=== PATIENT | female | born 1990 | race American Indian/Alaskan Native ===

== ENCOUNTER 2017-01-03 10:56 | Outpatient (CLI) | payer BC, MEDICAID ==
[2017-01-03 11:23] VITALS: BP 148/88
--- NOTE | 2017-01-03 12:50 | Ultrasound Report ---
BIOPHYSICAL PROFILE: History: well-being, rupture of membranes. Technique: Transabdominal ultrasound with Doppler interrogation. 2 - breathing movements 2 - movements 2 - posture and tone 2 - Qualitative amniotic fluid volume 8 - TOTAL SCORE OF POSSIBLE 8 Heart Rate (bpm) 132
--- NOTE | 2017-01-03 12:51 | Ultrasound Report ---
OB LIMITED History: well-being, rupture of membranes. Technique: Transabdominal ultrasound with Doppler interrogation. Gestation: Single Position: Cephalic Amniotic Fluid: Normal LIZ = 9.9 cm Heart Rate: 128 BPM
== END 2017-01-03 13:10 | disposition home or self-care (01) ==
LOC: TRG 10:56
PROVIDERS: ATTEND Obstetrics & Gynecology
DX: O42.92 Full-term premature rupture of membranes, unspecified as to length of time between rupture and onset of labor (principal); Z3A.37 37 weeks gestation of pregnancy
CPT/HCPCS: 59025; 76815; 76819

== ENCOUNTER 2019-01-22 22:08 | Emergency (ER) | payer BC, MEDICAID ==
[2019-01-22 22:17] VITALS: BP 114/53
--- NOTE | 2019-01-22 22:22 | Emergency Department Report ---
Blank Doc - Documentation Documentation: This is a 28-year-old female that presents with vaginal bleeding and pelvic cramping. Stated is about 2 weeks . This initial assessment/diagnostic orders/clinical plan/treatment(s) is/are subject to change based on patient's health status, clinical progression and re- assessment by fellow clinical providers in the ED. Further treatment and workup at subsequent clinical providers discretion. Patient/guardians urged not to elope from the ED as their condition may be serious if not clinically assessed and managed. Initial orders include: 1- Patient sent to [facility] for further evaluation and treatment 2- labs 3- UA
[2019-01-22 23:03] LABS: Basophils % (Auto) 0.4 % (0.0-1.8); Eosinophils % (Auto) 0.3 % (0.0-4.3); Hematocrit 39.6 % (30.3-42.9); Hemoglobin 12.9 gm/dl (10.1-14.3); Lymphocytes # (Auto) 1.9 K/mm3 (1.2-5.4); Lymphocytes % (Auto) 26.9 % (13.4-35.0); Mean Corpuscular HGB Conc 33 % (30-34); Mean Corpuscular Volume 83 fl (79-97); Monocytes # (Auto) 0.6 K/mm3 (0.0-0.8); Monocytes % (Auto) 8.8 % (0.0-7.3); Platelet Count 315 K/mm3 (140-440); Red Blood Count 4.78 M/mm3 (3.65-5.03); Red Cell Distribution Width 16.2 % (13.2-15.2)
[2019-01-22 23:20] LABS: Bacteria,Urine 1+ /HPF (Negative); Bilirubin,Urine NEG (Negative); Blood,Urine LG (Negative); Color,Urine Yellow (Yellow); Mucus,Urine FEW /HPF; Protein,Urine <15 mg/dL mg/dL (Negative); Urobilinogen,Urine < 2.0 mg/dL (<2.0)
[2019-01-22 23:22] LABS: RBC,Urine > 182.0 /HPF (0.0-6.0)
--- NOTE | 2019-01-23 03:40 | Ultrasound Report ---
PROCEDURE: US OB <= 14 WEEKS FETUS TECHNIQUE: Real-time transabdominal sonography of the uterus, placenta, amniotic fluid, adnexa, and fetus was performed with image documentation. Measurements were obtained to determine age/size. M-mode Doppler was used to document heartbeat. ADDITIONAL GESTATION: None. HISTORY: vag bleed while preg COMPARISONS: None . FINDINGS: No intrauterine or ectopic is identified. Uterus measures 7.6 x 3.9 x 5.4 cm. Endometrium is thickened at 14.2 mm. The right ovary measures 3.9 x 1.8 x 2.9 cm. The left ovary measures 2.3 x 2 x 2.5 cm. There is no ma ss or torsion. There is no free pelvic fluid. IMPRESSION: There is no evidence of intrauterine or ectopic . There is endometrial hyperplasia. This document is electronically signed by Phani Hearn MD., January 23 2019 03:38:24 AM ET
--- NOTE | 2019-01-23 03:42 | Ultrasound Report ---
PROCEDURE: US OB TRANSVAGINAL TECHNIQUE: Real-time transvaginal sonography of the uterus, placenta, amniotic fluid, adnexa, and fe tus was performed with image documentation. Measurements were obtained to determine age/size. M -mode Doppler was used to document heartbeat. ADDITIONAL GESTATION: None. HISTORY: vag bleed while preg COMPARISONS: None . FINDINGS: No intrauterine or ectopic is identified. Uterus measures 7.6 x 3.9 x 5.4 cm. Endometrium is thickened at 14.2 mm. The right ovary measures 3.9 x 1.8 x 2.9 cm. The left ovary measures 2.3 x 2 x 2.5 cm. There is no ma ss or torsion. There is no free pelvic fluid. IMPRESSION: There is no evidence of intrauterine or ectopic . There is endometrial hyperplasia. This document is electronically signed by Phani Hearn MD., January 23 2019 03:41:02 AM ET
--- NOTE | 2019-01-23 07:38 | Emergency Department Report ---
ED Female HPI - General Chief complaint: Vaginal Bleeding Stated complaint: POSS.MISCARRIAGE Time Seen by Provider: 01/22/19 22:21 Source: patient Mode of arrival: Ambulatory Limitations: No Limitations - History of Present Illness Initial comments: 28-year-old -[place] female that is 2 para 1 comes in stating she had a positive home test and a test by the lab. Patient reports that the lab tests shows that her hCG level was about to 10. Patient does not have a [facility] visit yet but is scheduled for Tuesday at [facility] [employer]. Patient reports vaginal bleeding started 2 hours prior to arrival yesterday. Patient pushes only used one pad in the last 24 hours. Patient states that she's having abdominal cramping is intermittent. She denies nausea vomiting. She reports her last menstrual period was 12/11/2018. Complaint: vaginal bleeding -: days(s) (1) Severity scale (0 -10): 7 Quality: cramping Consistency: intermittent Are you Now?: Yes Last Menstrual Period: 12/11/18 EDC: 09/17/19 Associated Symptoms: vaginal bleeding, abdominal pain (pelvic cramping). denies: vaginal discharge, nausea/vomiting, fever/chills - Related Data Sexually active: Yes : 2 Para: 1 Allergies Allergy/AdvReac Type Severity Reaction Status Date / Time No Known Allergies Allergy Verified 01/22/19 22:11 ED Review of Systems ROS: Stated complaint: POSS.MISCARRIAGE Other details as noted in HPI Comment: All other systems reviewed and negative ED Past Medical Hx - Past Medical History Previous Medical History?: No Hx Hypertension: No Hx Congestive Heart Failure: No Hx Diabetes: No Hx Deep Vein Thrombosis: No Hx Renal Disease: No Hx Sickle Cell Disease: No Hx Seizures: No Hx Asthma: No Hx COPD: No Hx HIV: No - Surgical History Past Surgical History?: No - Social History Smoking Status: Never Smoker Substance Use Type: None ED Physical Exam - General Limitations: No Limitations General appearance: alert, in no apparent distress - Head Head exam: Present: atraumatic, normocephalic - Eye Eye exam: Present: normal appearance, EOMI - ENT ENT exam: Present: mucous membranes moist - Neck Neck exam: Present: normal inspection, full ROM - Respiratory Respiratory exam: Present: normal lung sounds bilaterally. Absent: respiratory distress - Cardiovascular Cardiovascular Exam: Present: regular rate, normal rhythm. Absent: systolic murmur, diastolic murmur, rubs, gallop - GI/Abdominal GI/Abdominal exam: Present: soft, normal bowel sounds. Absent: distended, tenderness, guarding - Extremities Exam Extremities exam: Present: normal inspection - Back Exam Back exam: Present: normal inspection - Neurological Exam Neurological exam: Present: alert, oriented X3 - Psychiatric Psychiatric exam: Present: normal affect, normal mood - Skin Skin exam: Present: warm, dry, intact, normal color. Absent: rash ED Course Vital Signs 01/22/19 01/22/19 22:14 22:20 Temperature 98.4 F 98.4 F Pulse Rate 71 98 H Respiratory 18 18 Rate Blood Pressure 114/53 114/53 O2 Sat by Pulse 98 100 Oximetry ED Medical Decision Making - Lab Data Result diagrams: 01/22/19 22:34 Lab Results 01/22/19 01/22/19 01/22/19 Range/Units 22:34 22:34 22:34 WBC 7.2 (4.5-11.0) K/mm3 RBC 4.78 (3.65-5.03) M/mm3 Hgb 12.9 (10.1-14.3) gm/dl Hct 39.6 (30.3-42.9) % MCV 83 (79-97) fl MCH 27 L (28-32) pg MCHC 33 (30-34) % RDW 16.2 H (13.2-15.2) % Plt Count 315 (140-440) K/mm3 Lymph % (Auto) 26.9 (13.4-35.0) % [place] % (Auto) 8.8 H (0.0-7.3) % Eos % (Auto) 0.3 (0.0-4.3) % Baso % (Auto) 0.4 (0.0-1.8) % Lymph # 1.9 (1.2-5.4) K/mm3 [place] # 0.6 (0.0-0.8) K/mm3 Eos # 0.0 (0.0-0.4) K/mm3 Baso # 0.0 (0.0-0.1) K/mm3 Seg Neutrophils % 63.6 (40.0-70.0) % Seg Neutrophils # 4.6 (1.8-7.7) K/mm3 HCG, Quant 248.6 H (0-4) mIU/mL Urine Color (Yellow) Urine Turbidity (Clear) Urine pH (5.0-7.0) Ur Specific [place] (1.003-1.030) Urine Protein (Negative) mg/dL Urine Glucose (UA) (Negative) mg/dL Urine Ketones (Negative) mg/dL Urine Blood (Negative) Urine Nitrite (Negative) Urine Bilirubin (Negative) Urine Urobilinogen (<2.0) mg/dL Ur Leukocyte Esterase (Negative) Urine WBC (Auto) (0.0-6.0) /HPF Urine RBC (Auto) (0.0-6.0) /HPF U Epithel Cells (Auto) (0-13.0) /HPF Urine Bacteria (Auto) (Negative) /HPF Urine Mucus /HPF Blood Type A POSITIVE Antibody Screen Negative 01/22/19 Range/Units 22:55 WBC (4.5-11.0) K/mm3 RBC (3.65-5.03) M/mm3 Hgb (10.1-14.3) gm/dl Hct (30.3-42.9) % MCV (79-97) fl MCH (28-32) pg MCHC (30-34) % RDW (13.2-15.2) % Plt Count (140-440) K/mm3 Lymph % (Auto) (13.4-35.0) % [place] % (Auto) (0.0-7.3) % Eos % (Auto) (0.0-4.3) % Baso % (Auto) (0.0-1.8) % Lymph # (1.2-5.4) K/mm3 [place] # (0.0-0.8) K/mm3 Eos # (0.0-0.4) K/mm3 Baso # (0.0-0.1) K/mm3 Seg Neutrophils % (40.0-70.0) % Seg Neutrophils # (1.8-7.7) K/mm3 HCG, Quant (0-4) mIU/mL Urine Color Yellow (Yellow) Urine Turbidity Clear (Clear) Urine pH 6.0 (5.0-7.0) Ur Specific [place] 1.009 (1.003-1.030) Urine Protein <15 mg/dl (Negative) mg/dL Urine Glucose (UA) Neg (Negative) mg/dL Urine Ketones Neg (Negative) mg/dL Urine Blood Lg (Negative) Urine Nitrite Neg (Negative) Urine Bilirubin Neg (Negative) Urine Urobilinogen < 2.0 (<2.0) mg/dL Ur Leukocyte Esterase Sm (Negative) Urine WBC (Auto) 5.0 (0.0-6.0) /HPF Urine RBC (Auto) > 182.0 (0.0-6.0) /HPF U Epithel Cells (Auto) 1.0 (0-13.0) /HPF Urine Bacteria (Auto) 1+ (Negative) /HPF Urine Mucus Few /HPF Blood Type Antibody Screen - Radiology Data Radiology results: report reviewed Patient: JALEN JAIN MR#: [id number] : 1990 Acct:[id number] Age/Sex: 28 / F ADM Date: 01/22/19 Loc: ED Attending Dr: Ordering Physician: GELACIO KWON Date of Service: 01/23/19 Procedure(s): US OB transvaginal Accession Number(s): [id number] cc: GELACIO KWON PROCEDURE: US OB TRANSVAGINAL TECHNIQUE: Real-time transvaginal sonography of the uterus, placenta, amniotic fluid, adnexa, and fetus was performed with image documentation. Measurements were obtained to determine age/size. M-mode Doppler was used to document heartbeat. ADDITIONAL GESTATION: None. HISTORY: vag bleed while preg COMPARISONS: None . FINDINGS: No intrauterine or ectopic is identified. Uterus measures 7.6 x 3.9 x 5.4 cm. Endometrium is thickened at 14.2 mm. The right ovary measures 3.9 x 1.8 x 2.9 cm. The left ovary measures 2.3 x 2 x 2.5 cm. There is no mass or torsion. There is no free pelvic fluid. IMPRESSION: There is no evidence of intrauterine or ectopic . There is endometrial hyperplasia. This document is electronically signed by Phani Caba MD., January 23 2019 03:41:02 AM ET Transcribed By: [place] Dictated By: PHANI CABA MD Electronically Authenticated By: PHANI CBAA MD Signed Date/Time: 01/23/19 6323 DD/ 0 TD/TT: 01/23/19251 Critical care attestation.: If time is entered above; I have spent that time in minutes in the direct care of this critically ill patient, excluding procedure time. ED Disposition Clinical Impression: Threatened miscarriage in early Disposition: DC-01 TO HOME OR SELFCARE Is pt being admited?: No Does the pt Need Aspirin: No Condition: Stable Instructions: Threatened Miscarriage (ED) Additional Instructions: Please return back in 2-3 days to have a repeat hCG and possible ultrasound. Her hCG levels are low and you may need to have a repeat ultrasound. This may indicate that Your accuracy may be too early to identify gestational sac or fracture possibly having a miscarriage. Therefore it is very important for you to return back in 2-3 days to have lab work and a possible ultrasound. Referrals: YECENIA ARROYO MD [Primary Care Provider] - 3-5 Days [facility] [Provider Group] - 3-5 Days [facility], [facility] [Provider Group] - 3-5 Days [facility] [Provider Group] - 3-5 Days
== END 2019-01-23 07:58 | disposition home or self-care (01) ==
LOC: ED 22:08
DX: O20.0 Threatened abortion (principal); Z3A.01 Less than 8 weeks gestation of pregnancy
CPT/HCPCS: 36415; 76801; 76817; 81001; 84702; 85025; 86850; 86900; 86901; 99284